=== PATIENT | male | born 1995 | race Caucasian/White ===

== ENCOUNTER 2019-12-26 17:04 | Outpatient (CLI) | payer BC ==
--- NOTE | 2019-12-26 17:43 | RAD ---
RADIOGRAPH LEFT KNEE 4VIEWS: DATE: 12/26/2019 HISTORY: 24-year-old male with left knee pain." Chondromalacia" FINDINGS: There is no evidence of fracture or dislocation. There is no evidence of periostitis, permeative lesi on, osteolytic lesion, or osteoblastic lesion. The joint spaces are maintained without erosions or significant osteophytes. There is a small suprapatellar joint effusion. IMPRESSION: 1. Small joint effusion. 2. Otherwise negative
== END 2019-12-26 17:05 | disposition home or self-care (01) ==
LOC: SCSRAD 17:04
PROVIDERS: ATTEND Family Medicine
DX: M94.261 Chondromalacia, right knee (principal); M25.461 Effusion, right knee